=== PATIENT | female | born 2000 | race Caucasian/White ===

== ENCOUNTER 2021-03-24 10:15 | Outpatient (CLI) | payer BC, SELFPAY ==
--- NOTE | 2021-03-24 12:43 | WPDPFTINT ---
PFT Procedure Performed PFT Procedure Performed Spirometry with Pre/Post Bronchodilator Plethysmography (Lung Vol) Diffusing Cap (DLCO) Flow Vol Loop PFT Interpretation This is a pulmonary function test with pre and post-bronchodilator spirometry, plethysmography and diffusing capacity. The test was performed and results interpreted in accordance with the 2019 and 2005 ATS/ERS Task Force guidelines respectively using the Global Lung Function Initiative-2012 reference equations. Patient demonstrated good effort and cooperation. Reproducibility criteria were met. The quality of the pre bronchodilator spirometry maneuver was Grade B and post bronchodilator spirometry maneuver was Grade A. Findings: Spirometry: The contour the inspiratory and expiratory flow tracing are normal. The pre bronchodilator FVC is 4.31 L, 103% predicted. The pre bronchodilator FEV1 is 3.73 L, 102% predicted. The FEV1: FVC ratio was 87%. The post bronchodilator FVC is 4.40 L, representing a 2% increase. The post bronchodilator FEV1 is 3.92 L, representing a 5% increase. Plethysmography: The total lung capacity is 5.47 L, 112% predicted. The functional residual capacity is 2.72 L, 117% predicted. The residual volume is 1.09 L, 106% predicted. Diffusing capacity: The absolute diffusion capacity 24.0, 87% predicted. The diffusing capacity corrected for alveolar volume is 4.57, 92% predicted. Impression: The spirometry is normal without evidence of an obstructive abnormality. There is no significant improvement after inhaling a single dose of albuterol. The lung volumes are normal. The diffusing capacity is normal. There are no prior studies for comparison
== END 2021-03-24 10:16 | disposition home or self-care (01) ==
PROVIDERS: PCP Family Medicine; Visit Provider Family Medicine
DX: R06.02 Shortness of breath (principal)
CPT/HCPCS: 94060; 94726; 94729